=== PATIENT | female | born 1980 | race Caucasian/White ===

== ENCOUNTER 2016-06-01 04:11 | Emergency (ER) | payer OTHER ==
--- NOTE | 2016-06-01 06:37 | ER Document Report ---
ED Extremity Problem, Lower - General Chief Complaint: Foot Injury Stated Complaint: FOOT INJURY Notes: The patient is a 36-year-old female, past medical history chronic back pain, presents with left foot pain and swelling after she dropped a 45 pound weight on it yesterday. She denies numbness, tingling, open wounds, ankle pain or difficulty walking. TRAVEL OUTSIDE OF THE [place] IN LAST 30 DAYS: No - Related Data Allergies/Adverse Reactions: codeine Adverse Reaction (Severe, Verified 06/01/16 04:36) VOMITING Home Medications: Current Home Medications Levothyroxine Sodium 1 tab PO DAILY 06/01/16 [History] Sertraline HCl [Sertraline HCl] 1 tab PO DAILY 06/01/16 [History] Trazodone HCl 1 tab PO DAILY 06/01/16 [History] Past Medical History - General Information source: Patient - Social History Smoking Status: Never Smoker Chew tobacco use (# tins/day): No Frequency of alcohol use: regularly Drug Abuse: None Family History: Reviewed & Not Pertinent Renal/ Medical History: Denies: Hx Peritoneal Dialysis - Immunizations Hx Diphtheria, Pertussis, Tetanus Vaccination: - unsure Review of Systems - Review of Systems Notes: REVIEW OF SYSTEMS: CONSTITUTIONAL: -fevers, -chills EENT: -eye pain, -difficulty swallowing, -nasal congestion CARDIOVASCULAR:-chest pain, -syncope. RESPIRATORY: -cough, -SOB GASTROINTESTINAL: -abdominal pain, - nausea, -vomiting, -diarrhea GENITOURINARY: -dysuria, -hematuria MUSCULOSKELETAL: +left foot pain, -back pain, -neck pain SKIN: -rash or skin lesions. HEMATOLOGIC: -easy bruising or bleeding. LYMPHATIC: -swollen, enlarged glands. NEUROLOGICAL: -altered mental status or loss of consciousness, -headache, - neurologic symptoms PSYCHIATRIC: -anxiety, -depression. ALL OTHER SYSTEMS REVIEWED AND NEGATIVE. Physical Exam - Vital signs Vitals: Temp Pulse Resp BP Pulse Ox 98.1 F 72 14 122/85 99 06/01/16 04:44 06/01/16 04:44 06/01/16 04:44 06/01/16 04:44 06/01/16 04:44 - Notes Notes: PHYSICAL EXAMINATION: GENERAL: Well-appearing, well-nourished and in no acute distress. HEAD: Atraumatic, normocephalic. EYES: Pupils equal round and reactive to light, extraocular movements intact, sclera anicteric, conjunctiva are normal. ENT: nares patent, oropharynx clear without exudates. Moist mucous membranes. NECK: Normal range of motion, supple without lymphadenopathy LUNGS: Breath sounds clear to auscultation bilaterally and equal. No wheezes rales or rhonchi. HEART: Regular rate and rhythm without murmurs ABDOMEN: Soft, nontender, normoactive bowel sounds. No guarding, no rebound. No masses appreciated. EXTREMITIES: Large contusion over left dorsal surface of the mid foot, brisk capillary refill, normal range of motion, no pitting or edema. No cyanosis. NEUROLOGICAL: Cranial nerves grossly intact. Normal speech, normal gait. Normal sensory, motor, and reflex exams. PSYCH: Normal mood, normal affect. SKIN: Warm, Dry, normal turgor, no rashes or lesions noted. Course - Re-evaluation Re-evalutation: Patient without any fractures on x-ray. Instructed patient about contusion management. No base of fifth metatarsal tenderness to suggest a Afshin's fracture. Given her return precautions and she understands. - Vital Signs Vital signs: Temp Pulse Resp BP Pulse Ox 98.1 F 72 14 122/85 99 06/01/16 04:44 06/01/16 04:44 06/01/16 04:44 06/01/16 04:44 06/01/16 04:44 - Diagnostic Test Radiology reviewed: Image reviewed, Reports reviewed Radiology results interpreted by me: Left foot: No fracture Discharge - Discharge Clinical Impression: Contusion of left foot Qualifiers: Encounter type: initial encounter Qualified Code(s): S90.32XA - Contusion of left foot, initial encounter Condition: Good Disposition: HOME, SELF-CARE Additional Instructions: Contusion Your injury has resulted in a contusion -- a crushing of the deep tissues. No injury to important structures was detected during the physician's exam. Contusions vary in the amount of pain they cause, and in the length of time required for healing. Typically, the area will become bruised, and will remain painful to touch for two or three weeks. However, most patients are back to working and playing within a few days. After the initial period of rest and cold-packs, your symptoms (together with the doctor's recommendations) will determine how rapidly you can get back to full activity. Usually this means "do what feels okay, but don't do things that hurt." If re-examination was recommended, it's important to follow up as instructed. Call the doctor or return any time if pain increases, if swelling becomes severe, if you develop numbness or weakness in an injured extremity, or if any other alarming symptoms occur. Prescriptions: Hydrocodone/Acetaminophen [Richton 5-325 mg Tablet] 1 tab PO Q6H PRN #6 tablet PRN Reason: Referrals: BRYCE LORA MD [Primary Care Provider] - Follow up as needed MARGY BROWN DO [ACTIVE STAFF] - Follow up as needed
[2016-06-01 07:01] VITALS: BP 120/78
== END 2016-06-01 07:01 | disposition home or self-care (01) ==
LOC: ER 04:11
DX: S90.32XA Contusion of left foot, initial encounter (principal); W20.8XXA Other cause of strike by thrown, projected or falling object, initial encounter; Z88.6 Allergy status to analgesic agent
CPT/HCPCS: 99283

== ENCOUNTER 2018-04-16 12:59 | Emergency (ER) | payer OTHER ==
[2018-04-16 13:59] VITALS: BP 132/86
[2018-04-16] MEDS ORDERED: AMOXICILLIN TR/POT CLAVULANATE 500-125 MG TAB PO ONE (14:48)
[2018-04-16] MEDS ORDERED: LIDOCAINE 1% INJ-PF (10 MG/ML) 30 ML SDV INJ ONE (14:48)
--- NOTE | 2018-04-16 14:51 | ER Document Report ---
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 Patient states that the Bird turned his head and bit her right fifth finger. Patient is right-hand dominant. Patient states that the area seems to be numb and she is not having any pain. Associated Symptoms: denies: Fever Exacerbated by: Denies Relieved by: Denies Similar symptoms previously: No Recently seen / treated by doctor: No - ROS ROS below otherwise negative: Yes Systems Reviewed and Negative: Yes All other systems reviewed and negative - CONSTITUTIONAL Constitutional: DENIES: Fever - REPRODUCTIVE Reproductive: DENIES: : - DERM Skin Color: Normal Skin Problems: Laceration Past Medical History - General Information source: Patient - Social History Smoking Status: Never Smoker Frequency of alcohol use: Occasional Drug Abuse: None Occupation: Veterinary office Family History: Reviewed & Not Pertinent Patient has suicidal ideation: No Patient has homicidal ideation: No Endocrine Medical History: Reports: Hx Hypothyroidism Renal/ Medical History: Denies: Hx Peritoneal Dialysis Psychiatric Medical History: Reports: Hx Depression Past Surgical History: Reports: Hx Breast Surgery - augmentation, Hx Oral Surgery - wisdom teeth, Hx Tubal Ligation - Immunizations Hx Diphtheria, Pertussis, Tetanus Vaccination: - unsure Vertical Provider Document - CONSTITUTIONAL Agree With Documented VS: Yes Exam Limitations: No Limitations General Appearance: WD/WN, No Apparent Distress - INFECTION CONTROL TRAVEL OUTSIDE OF THE [place] IN LAST 30 DAYS: No - HEENT HEENT: Atraumatic, Normocephalic - NECK Neck: Normal Inspection - RESPIRATORY Respiratory: No Respiratory Distress - CARDIOVASCULAR Pulses: Normal: Radial - MUSCULOSKELETAL/EXTREMETIES Musculoskeletal/Extremeties: MAEW, FROM, Non-Tender Notes: Patient with a 1 cm curvilinear laceration to palmar aspect of right fifth finger. No tendon deficit patient with decreased sensation to radial and ulnar aspects of right fifth finger distal to the laceration. Normal sensation proximal to laceration. - NEURO Level of Consciousness: Awake, Alert, Appropriate Motor/Sensory: No Motor Deficit - DERM Integumentary: Warm, Dry, No Rash Course - Re-evaluation Re-evalutation: 04/16/18 14:49 Dr. Davin Powell to bedside for examination. Recommends placing a single suture to help approximate wound edges. Recommends covering with Augmentin. - Vital Signs Vital signs: Temp Pulse Resp BP Pulse Ox 99.4 F 71 14 132/86 H 100 04/16/18 13:57 04/16/18 13:57 04/16/18 13:57 04/16/18 13:57 04/16/18 13:57 Procedures - Immobilization Right Finger 5th digit Pre-Proc Neuro Vasc Exam: Normal Immobilizer type: Finger splint (Static) Performed by: PCT Post-Proc Neuro Vasc Exam: Normal Alignment checked and good: Yes - Laceration/Wound Repair Right Finger 5th digit Wound length (cm): 1 Wound's Depth, Shape: Irregular Anesthetic type: 1% Lidocaine Wound explored: Clean Wound Repaired With: Sutures Suture Size/Type: 5:0, Nylon Number of Sutures: 1 Post-procedure wound care: Sterile dressing applied, Splint applied Post-procedure NV exam normal: No - Paresthesia radial and ulnar aspect of right fifth finger distal to injury Complications: No Hands front picture: 1 - lac Discharge - Discharge Clinical Impression: bird bite to finger Finger laceration Qualifiers: Encounter type: initial encounter Finger: little finger Damage to nail status: without damage Foreign body presence: without foreign body Laterality: right Qualified Code(s): S61.216A - Laceration without foreign body of right little finger without damage to nail, initial encounter Condition: Stable Disposition: HOME, SELF-CARE Instructions: Antibiotic Ointment Protection ([facility]), Laceration Care ([facility]), Prophylactic Antibiotic ([facility]) Additional Instructions: Return immediately for any new or worsening symptoms Followup with your primary care provider, call tomorrow to make a followup appointment Suture removal in 10 days Prescriptions: Amox Tr/Potassium Clavulanate [Augmentin 875-125 Tablet] 1 tab PO BID 5 Days #10 tablet Forms: Return to Work Referrals: BRYCE LORA MD [Primary Care Provider] - Follow up as needed MARGY BROWN DO [ACTIVE STAFF] - Follow up as needed
== END 2018-04-16 15:21 | disposition home or self-care (01) ==
LOC: ER 12:59
PROC: 0HQFXZZ Repair Right Hand Skin, External Approach (ICD-10-PCS; principal; 2018-04-16)
DX: S61.256A Open bite of right little finger without damage to nail, initial encounter (principal); W61.91XA Bitten by other birds, initial encounter
CPT/HCPCS: 99283; 12001; J3490

== ENCOUNTER 2019-08-22 17:34 | Emergency (ER) | payer OTHER ==
[2019-08-22 17:42] VITALS: BP 114/81
--- NOTE | 2019-08-22 18:06 | ER Document Report ---
ED GI/ - General Chief Complaint: Urinary Problem Stated Complaint: URINARY URGENCY,PAINFUL URINATION Time Seen by Provider: 08/22/19 17:52 Primary Care Provider: BRYCE LORA MD [PEDIATRICS] - Follow up in 3-5 days Mode of Arrival: Ambulatory Information source: Patient Notes: 39-year-old female presented to ED for continued urinary symptoms frequency urge ncy burning. She states she has had blood in her urine. She states she is been seen multiple times by her MARINE TECHNICIAN and been treated for BV almost monthly. She states she was seen recently by the MARINE TECHNICIAN and was started on medication for UTI she was to take that for 3 days then she was to start Flagyl and then do her yeast medication. She states she is continued to have severe frequency urgency and burning and is not getting any better. She states she does not smoke she drinks 2-3 beers a day and does not use any drugs. She states she is sexually active with the same person. She states she would like to be retested for the urine and for STDs. She states she had a negative wet mount on the or 04 August. TRAVEL OUTSIDE OF THE [place] IN LAST 30 DAYS: No - HPI Patient complains to provider of: Other - Vaginal pain frequency urgency and pain with urination Onset: Other - For the last more than a week Timing/Duration: Persistent Quality of pain: Burning Severity at maximum: Moderate Severity in ED: None Pain Level: Denies Vaginal bleeding (Compared to normal period): None Associated symptoms: Other - Frequency urgency burning sometimes blood in her urine Exacerbated by: Other - Urination Relieved by: Denies Similar symptoms previously: Yes Recently seen / treated by doctor: Yes - Related Data Allergies/Adverse Reactions: codeine Adverse Reaction (Severe, Verified 08/22/19 17:52) VOMITING Past Medical History - General Information source: Patient - Social History Smoking Status: Never Smoker Chew tobacco use (# tins/day): No Frequency of alcohol use: Heavy Drug Abuse: None Lives with: Family Family History: Reviewed & Not Pertinent Patient has homicidal ideation: No - Past Medical History Cardiac Medical History: Reports: None Pulmonary Medical History: Reports: None EENT Medical History: Reports: None Neurological Medical History: Reports: None Endocrine Medical History: Reports: Hx Hypothyroidism Renal/ Medical History: Reports: None Malignancy Medical History: Reports: None GI Medical History: Reports: None Musculoskeletal Medical History: Reports None Skin Medical History: Reports None Psychiatric Medical History: Reports: Hx Depression Traumatic Medical History: Reports: None Infectious Medical History: Reports: None Past Surgical History: Reports: Hx Breast Surgery - augmentation, Hx Oral Surgery - wisdom teeth, Hx Tubal Ligation - Immunizations Hx Diphtheria, Pertussis, Tetanus Vaccination: - unsure Review of Systems - Review of Systems Constitutional: No symptoms reported EENT: No symptoms reported Cardiovascular: No symptoms reported Respiratory: No symptoms reported Gastrointestinal: No symptoms reported Genitourinary: Burning, Frequency, Urgency Female Genitourinary: No symptoms reported Musculoskeletal: No symptoms reported Skin: No symptoms reported Hematologic/Lymphatic: No symptoms reported Neurological/Psychological: No symptoms reported -: Yes All other systems reviewed and negative Physical Exam - Vital signs Vitals: Temp Pulse Resp BP Pulse Ox 98.6 F 69 16 114/81 100 08/22/19 17:40 08/22/19 17:40 08/22/19 17:40 08/22/19 17:40 08/22/19 17:40 Interpretation: Normal - General General appearance: Appears well, Alert - HEENT Head: Normocephalic, Atraumatic Eyes: Normal Pupils: PERRL - Respiratory Respiratory status: No respiratory distress Chest status: Nontender Breath sounds: Normal Chest palpation: Normal - Cardiovascular Rhythm: Regular Heart sounds: Normal auscultation Murmur: No - Abdominal Inspection: Normal Distension: No distension Bowel sounds: Normal Tenderness: Nontender Organomegaly: No organomegaly - Back Back: Normal, Nontender - Extremities General upper extremity: Normal inspection, Nontender, Normal color, Normal ROM, Normal temperature General lower extremity: Normal inspection, Nontender, Normal color, Normal ROM, Normal temperature, Normal weight bearing. No: Kathleen's sign - Neurological Neuro grossly intact: Yes Cognition: Normal Orientation: AAOx4 Alberto Coma Scale Eye Opening: Spontaneous [place] Coma Scale Verbal: Oriented Alberto Coma Scale Motor: Obeys Commands Alberto Coma Scale Total: 15 Speech: Normal Motor strength normal: LUE, RUE, LLE, RLE Sensory: Normal - Psychological Associated symptoms: Normal affect, Normal mood - Skin Skin Temperature: Warm Skin Moisture: Dry Skin Color: Normal Course - Re-evaluation Re-evalutation: 08/22/19 19:09 Pharmacy called because I had written 150 tablets instead of 15 doses. She states they can only do it for 3 days is not really recommended for more than 3 days. I did instruct the pharmacy to please give her 3 times a day for 3 days. - Vital Signs Vital signs: Temp Pulse Resp BP Pulse Ox 98.6 F 69 16 114/81 100 08/22/19 17:52 08/22/19 17:40 08/22/19 17:40 08/22/19 17:40 08/22/19 17:40 - Laboratory Laboratory results interpreted by me: 08/22/19 18:09 Urine Protein 30 H Urine Blood SMALL H Ur Leukocyte Esterase SMALL H Discharge - Discharge Clinical Impression: Urinary discomfort Condition: Stable Disposition: HOME, SELF-CARE Additional Instructions: You were seen today for continued urinary discomfort. Your urine does not show a definite UTI at this time it will be sent for culture. If the culture grows out anything a prescription will be called to the pharmacy you have requested. You were also swabbed for gonorrhea and chlamydia. Those results will come back in about an hour to 2 hours. If you want to call back in about 2 hours and asked for Eri Deluca they will connect you to me and I will give you the results of them. URINARY ANESTHETIC AGENT: You have been given a medication (Pyridium) for urinary tract discomfort. This medicine numbs the lining of the bladder and urethra, resulting in less pain, burning, and urgency. You may take it as needed, according to instructions. When the symptoms resolve, you can stop this medication (be sure to continue any other medications the doctor has given you). This medicine turns the urine a dark orange. It may stain underwear. Occasionally, it can cause nausea. Return for evaluation if there are any unexpected effects, such as itching, hives, or shortness of breath. You can call the hospital in about an hour to an hour and a half as for the Afshin in the emergency room and I will give you the results of your other test. You need to tell me your name and birthdate in order to get the results. FOLLOW-UP CARE: If you have been referred to a physician for follow-up care, call the physicians office for an appointment as you were instructed or within the next two days. If you experience worsening or a significant change in your symptoms, notify the physician immediately or return to the Emergency Department at any time for re-evaluation. Prescriptions: Phenazopyridine HCl [Pyridium] 150 mg PO TIDP PRN #150 tablet PRN Reason: Referrals: BRYCE LORA MD [PEDIATRICS] - Follow up in 3-5 days
[2019-08-22 18:29] LABS: APPEARANCE,URINE SLIGHTLY-CLOUDY; BILIRUBIN,URINE NEGATIVE (NEGATIVE); COLOR,URINE YELLOW; GLUCOSE, URINE NEGATIVE (NEGATIVE); KETONES,URINE NEGATIVE (NEGATIVE); LEUKOCYTE ESTERASE,URINE SMALL (NEGATIVE); NITRITE,URINE NEGATIVE (NEGATIVE); PROTEIN,URINE 30 mg/dL (NEGATIVE); URINE SPECIFIC GRAVITY 1.015; UROBILINOGEN,URINE NEGATIVE mg/dL (<2.0)
[2019-08-22] MEDS ORDERED: PHENAZOPYRIDINE HCL 100 MG TABLET PO ONE (18:44)
[2019-08-22 19:49] LABS: CHLAM PCR NOT DETECTED (NOT DETECT)
== END 2019-08-22 19:00 | disposition home or self-care (01) ==
LOC: ER 17:34
DX: R30.9 Painful micturition, unspecified (principal); R39.15 Urgency of urination; R35.0 Frequency of micturition; R31.9 Hematuria, unspecified; R10.2 Pelvic and perineal pain
CPT/HCPCS: 99283; 36415; 87086; 87088; 81001; 87186; 87491; 87591; J3490